=== PATIENT | male | born 1985 | race Caucasian/White ===

== ENCOUNTER 2024-02-05 18:07 | Emergency (ER) | payer OTHER, SELFPAY ==
[2024-02-05 18:08] VITALS: BP 163/96; PULSE 76; RESP 15; TEMP 36.8; O2SAT 98; BMI 26.2
--- NOTE | 2024-02-05 18:30 | RAD_ITS ---
EXAM: XR LEFT FINGERS, 2 OR MORE VIEWS CLINICAL INDICATION: injury, thumb TECHNIQUE: Frontal, lateral and oblique views of the fingers of the left hand. COMPARISON: No relevant prior studies available. FINDINGS: BONES/JOINTS: Fracture of the tuft of the first digit. The fracture fragment is displaced. Preservation of the joint space. No sclerotic or destructive changes observed. SOFT TISSUES: Unremarkable. No soft tissue swelling or gas. No radiopaque foreign body. RAD/Finger(s) Min 2 Views IMPRESSION: Fracture of the tuft of the first digit. Electronically Signed: Kasi Beltran MD at 18:49 EDT ,
--- NOTE | 2024-02-05 18:30 | RAD_ITS ---
EXAM: XR RIGHT FINGERS, 2 OR MORE VIEWS CLINICAL INDICATION: R index TECHNIQUE: Frontal, lateral and oblique views of the fingers of the right hand. COMPARISON: No relevant prior studies available. FINDINGS: BONES/JOINTS: Unremarkable. No acute fracture. No subluxation. Normal alignment. Preservation of the joint space. No sclerotic or destructive changes observed. SOFT TISSUES: Unremarkable. No soft tissue swelling or gas. No radiopaque foreign body. RAD/Finger(s) Min 2 Views IMPRESSION: Negative x-rays of the visualized right fingers. Electronically Signed: Kasi Beltran MD at 18:48 EDT ,
[2024-02-05] MEDS: Lidocaine 1% (20 ml mdv) 20 ML Vial 10 ML INFILT (18:31)
--- NOTE | 2024-02-05 18:53 | EX.ED.GENINJ ---
HPI <DAMIEN Lucio - Last Filed: 02/05/24 19:59> History of Present Illness Chief Complaint: Laceration Narrative Narrative: Patient presenting today due to an injury to his right second finger and left first finger that occurred this afternoon. He reports that he was loading milk onto a tanker, the pump was running and he got his fingers pinched in between the belt and the denisse system. Tetanus is up-to-date. He denies any other injury. He is not on any blood thinners. Tetanus Immunization: <5 years PFS <DAMIEN Lucio - Last Filed: 02/05/24 19:59> PFSH Allergy/AdvReac Type Severity Reaction Status Date / Time No Known Allergies Allergy Verified 02/05/24 18:10 Social History Smoking Status: Never smoker ROS <DAMIEN Lucio - Last Filed: 02/05/24 19:59> ROS ED Constitutional Constitutional ED: Denies chills or fever(s) Cardiovascular Cardiovascular: Denies chest pain Respiratory/Chest Respiratory/Chest: Denies cough or dyspnea Gastrointestinal Gastrointestinal: Denies abdominal pain, nausea or vomiting Musculoskeletal Musculoskeletal: Reports arthralgias Integumentary Reports laceration Neurologic Neurologic: Denies paresthesias or weakness EXAM <DAMIEN Lucio - Last Filed: 02/05/24 19:59> Physical Exam Const Vital Signs: 02/05/24 18:08 02/05/24 19:46 Temperature 98.3 F 97.8 F Temperature Source Temporal Pulse Rate 76 61 Respiratory Rate 15 16 Blood Pressure 163/96 H 126/77 H Blood Pressure Mean 118 93 Pulse Ox 98 100 Oxygen Delivery Method Room Air Positive well nourished, well developed and no apparent distress General Appearance ED: well developed HEENT Reports normocephalic and head/scalp atraumatic Mouth ED: Yes moist mucous membranes normal Eyes PERRL and EOMs intact bilaterally Neck full ROM and supple Chest Wall inspection of chest normal Resp normal respiratory effort and clear to auscultation bilaterally Cardio regular rate and regular rhythm GI soft to palpation, non-tender, non-distended and no masses Back/Spine normal ROM and normal to inspection Extremity full ROM Extremity Narrative: Subungual hematoma to the left first finger that is greater than 50%, 1 superficial abrasion below the left first IP joint, one 0.5 cm full-thickness linear laceration above the IP joint. Right second fingernail avulsion. Right and left radial pulse 2+, good capillary refill, sensation intact, full range of motion to all fingers bilaterally. Neuro oriented x3, CN's II-XII intact bilaterally, moves all extremities, no focal motor deficits and no sensory deficits noted Sensorium / Orientation: awake and alert Psych mental status grossly normal and thought process normal <Dr. Juan Schrader MD - Last Filed: 02/05/24 20:16> Physical Exam Const Vital Signs: 02/05/24 18:08 02/05/24 19:46 Temperature 98.3 F 97.8 F Temperature Source Temporal Pulse Rate 76 61 Respiratory Rate 15 16 Blood Pressure 163/96 H 126/77 H Blood Pressure Mean 118 93 Pulse Ox 98 100 Oxygen Delivery Method Room Air PROC <DAMIEN Lucio - Last Filed: 02/05/24 19:59> Procedures Lacerations Laceration: Length: 0.2 in Depth: Sub Q Shape: Linear Prep: Chlorhexadine Laceration repair: Irrigated and Wound explored Number of Sutures/Priya: 1 Suture Information: Ethilon and 5-0 MDM <DAMIEN Lucio - Last Filed: 02/05/24 19:59> MDM MDM Narrative Medical decision making narrative: Patient presenting today with an injury to his left first and right second fingers after getting them caught in a denisse system. He has 2 lacerations to his left thumb, one of them will require suture repair, there is also a subungual hematoma to this finger that will require trephination. Right second finger nail avulsion will require removal. X-rays obtained, he does have a fracture to the tuft of the left first finger. Fingers irrigated with normal saline and cleaned with chlorhexidine. Digital block performed to the right second finger and nail was removed, nail and nailbed were then cleaned, no nailbed injury, nail put back in place and 1 stitch with 5-0 Ethilon placed to hold it in place. Left thumb required 1 suture, no digital block was performed on this finger. Wound care instructions discussed. I have given him an orthopedic referral. He will be given a aluminum splint for the finger fracture. He will be discharged home in stable condition and is comfortable with plan. I have personally performed a face to face assessment of the patient and have reviewed the G[facility] Note. I performed a substantive portion of the visit including all aspects of the following. My velazquez findings include: History is remarkable for injury to right index finger and left thumb. Patient is right-hand dominant. Denies paresthesia, anesthesia medics. He has an incompletely avulsed nail of the right index finger. Extensor inside tendon is intact. Flexor digitorum superficialis and flexor digitorum profundus are intact. The left thumb has a 75 to 85% subungual hematoma. There is a laceration proximal to the nail. This will require repair. Patient has active range of motion of the thumb. Sensations intact. Exam is incompletely avulsed nail right index finger which require removal and suture in place. If there is a nailbed injury will repair with Rapide the subungual hematoma left thumb was trephinated by me. Laceration to be repaired by physician occupational therapist assistants. Will obtain x-rays of both digits to rule out fracture. Medical Decision Making x-rays to rule out fracture and repair of nail right index finger and trephination left thumb and repair laceration dorsal surface of left thumb. Other additions or changes: Three-view x-ray of the index finger reveals no evidence of fracture, subluxation dislocation. This was independent reviewed interpreted by me. X-ray of finger/hand left side reveals a tuft fracture of the thumb. This is nondisplaced. 3 views were obtained independent reviewed interpreted by me. Radiography Diagnostic Testing: Clinical Impression(s) from Imaging Studies Finger X-Ray 02/05/24 18:30 IMPRESSION: Fracture of the tuft of the first digit. Electronically Signed: Kasi Beltran MD at 18:49 EDT , Finger X-Ray 02/05/24 18:30 IMPRESSION: Negative x-rays of the visualized right fingers. Electronically Signed: Kasi Beltran MD at 18:48 EDT , <Dr. Juan Schrader MD - Last Filed: 02/05/24 20:16> [facility] Narrative Medical decision making narrative: Patient presenting today with an injury to his left first and right second fingers after getting them caught in a denisse system. He has 2 lacerations to his left thumb, one of them will require suture repair, there is also a subungual hematoma to this finger that will require trephination. Right second finger nail avulsion will require removal. X-rays obtained, he does have a fracture to the tuft of the left first finger. I have personally performed a face to face assessment of the patient and have reviewed the GAL[place]O Note. I performed a substantive portion of the visit including all aspects of the following. My velazquez findings include: History is remarkable for injury to right index finger and left thumb. Patient is right-hand dominant. Denies paresthesia, anesthesia medics. He has an incompletely avulsed nail of the right index finger. Extensor inside tendon is intact. Flexor digitorum superficialis and flexor digitorum profundus are intact. The left thumb has a 75 to 85% subungual hematoma. There is a laceration proximal to the nail. This will require repair. Patient has active range of motion of the thumb. Sensations intact. Exam is incompletely avulsed nail right index finger which require removal and suture in place. If there is a nailbed injury will repair with Rapide the subungual hematoma left thumb was trephinated by me. Laceration to be repaired by physician occupational therapist assistants. Will obtain x-rays of both digits to rule out fracture. Medical Decision Making x-rays to rule out fracture and repair of nail right index finger and trephination left thumb and repair laceration dorsal surface of left thumb. Other additions or changes: Three-view x-ray of the index finger reveals no evidence of fracture, subluxation dislocation. This was independent reviewed interpreted by me. X-ray of finger/hand left side reveals a tuft fracture of the thumb. This is nondisplaced. 3 views were obtained independent reviewed interpreted by me. Radiography Diagnostic Testing: Clinical Impression(s) from Imaging Studies Finger X-Ray 02/05/24 18:30 IMPRESSION: Fracture of the tuft of the first digit. Electronically Signed: Kasi Beltran MD at 18:49 EDT , Finger X-Ray 02/05/24 18:30 IMPRESSION: Negative x-rays of the visualized right fingers. Electronically Signed: Kasi Beltran MD at 18:48 EDT , Discharge Plan Triage Chief Complaint: Laceration ED Midlevel Provider: Coleen Ibrahim ED Provider: Juan Schrader Dx/Rx/DC Orders Clinical Impression: Avulsion of nail of right index finger, Closed fracture of tuft of distal phalanx of left thumb, Laceration of left thumb, Hematoma, subungual, thumb, left Instructions: ED Fracture, Finger, Closed, ED Laceration, All Closures, ED Detached Fingernail or Toenail Primary Care Provider: Care Physician,No Primary Referrals: Toñito Lantigua MD [Med Staff - Active Staff] - 1 Week Care Physician,No Primary [Primary Care Provider] - Activity Restrictions/Additional Instructions: Have sutures removed in 7 days. Follow-up with orthopedics. You can alternate Tylenol and ibuprofen for your pain as needed. Ice your left thumb for 15 to 20 minutes at a time a few times a day for the next 2 days to help with pain and swelling. Return for any signs of infection. Disposition Disposition: Home, Self Care Discharge Date/Time: 02/05/24 19:47
[2024-02-05 19:46] VITALS: BP 126/77; PULSE 61; RESP 16; TEMP 36.6; O2SAT 100
== END 2024-02-05 19:47 | disposition home or self-care (01) ==
PROVIDERS: Emergency Provider Emergency Medicine; Visit Provider Emergency Medicine
DX: S62.522A Displaced fracture of distal phalanx of left thumb, initial encounter for closed fracture (principal); S61.012A Laceration without foreign body of left thumb without damage to nail, initial encounter; S60.012A Contusion of left thumb without damage to nail, initial encounter; X58.XXXA Exposure to other specified factors, initial encounter
CPT/HCPCS: 12001; 11750; 11760; 73140; 99285